=== PATIENT | male | born 1980 | race Asian ===

== ENCOUNTER 2022-02-05 16:58 | Outpatient (REF) | payer OTHER, SELFPAY ==
--- NOTE | ~2022-02-05 | XR_ITS ---
EXAMINATION: XR CHEST CLINICAL INFORMATION: Cough. COMPARISON: None TECHNIQUE: 2 views of the chest were obtained. FINDINGS: The lungs are well expanded. No focal consolidation. No pleural effusion. Cardiac silhouette is within normal limits. XR/XR chest 2V IMPRESSION: No acute abnormality.
== END 2022-02-05 16:59 | disposition home or self-care (01) ==
LOC: HO.XRAY 16:58
PROVIDERS: Visit Provider Internal Medicine
DX: R05.9 Cough, unspecified (principal)
CPT/HCPCS: 71046; 99212

== ENCOUNTER 2022-02-06 12:05 | Outpatient (REF) | payer OTHER, SELFPAY ==
--- NOTE | 2022-02-06 13:41 | PFT_ITS ---
INDICATION: Cough. SPIROMETRY: FEV1 to FVC 98% with an FEV1 of 3.05 L which is 79% predicted and FVC of 3.47 L which is 92% predicted. No significant response to bronchodilators noted. Maximum voluntary ventilation 69% predicted. LUNG VOLUMES: Total lung capacity 81% predicted with an expiratory reserve volume of 54% predicted. DIFFUSION CAPACITY: DLCO 87% predicted. COMPARISONS: None. INTERPRETATION: No obstructive nor restrictive ventilatory defects identified. No significant response to bronchodilators noted. There is a mild decrease in maximum voluntary ventilation secondary to deconditioning. Lung volumes also low normal. Therefore, occult interstitial lung conditions or neuromuscular conditions cannot be ruled out. Diffusion capacity is within normal limits. If asthma is in the differential, methacholine challenge may be helpful in assessing for hyper-reactive airways disease. Clinical correlation warranted. MD KENTON Patel/MODL / [id number]
== END 2022-02-06 12:06 | disposition home or self-care (01) ==
LOC: HO.RESP 12:05
PROVIDERS: Visit Provider Internal Medicine
DX: J68.3 Other acute and subacute respiratory conditions due to chemicals, gases, fumes and vapors (principal); R05.9 Cough, unspecified
CPT/HCPCS: 94060; 94727; 94729

== ENCOUNTER 2023-05-07 15:21 | Outpatient (AMB) | payer OTHER, SELFPAY ==
[2023-05-07 15:28] VITALS: BP 122/78; PULSE 74; O2SAT 98; BMI 27.7
--- NOTE | 2023-05-07 15:28 | A.OFFVIS_ITS ---
Intake Vital Signs 05/07/23 15:28 Height 5 ft 7 in Weight 177 lb BMI 27.7 BP 122/78 Blood Pressure Location Lt brachial Position Sitting Pulse 74 Pulse Source Pulse Oximeter Pulse Oximetry (%) 98 Oxygen Delivery Method Room Air Intake Visit Reasons: cough Intake Note: pt is here for follow up and he has a cough, and yesterday slight fever 100.5, 101 doing home remedies, it was the cough that was his main reason for the call. [employer] Apprentice Required: No Allergies No Known Allergies Allergy (Verified 05/07/23 15:34) Medication List - Last Reconciled 05/07/23 by Liza Manzanares MD albuterol sulfate 90 mcg/actuation (ProAir HFA) inhalation Flovent HFA 110 mcg/actuation (fluticasone propionate) 2 puffs inhalation BID 30 days NS Do you need a note to return to daycare/school/sports/work: No HPI cough HPI Details 42 YEARS OLD GENTLEMAN IS COMPLAINING OF ONGOING COUGH FOR ABOUT 4-6 WEEKS. AT THE ONSET OF HIS SYMPTOMS HE DID HAVE ACUTE VIRAL ILLNESS, FROM WHICH HE RECOVERED WITHIN A FEW DAYS. AT THAT POINT HE DID NOT CHECK FOR ANY. COVID INFECTION SUBSEQUENTLY HE HAS CONTINUE TO HAVE COUGH, WHICH HAS NOT SUBSIDED. THE COUGH COMES ON WITH ANY PHYSICAL EXERTION , SPEAKING LOAD OR LAUGHING. GETS WORSE SOMETIME AT NIGHT IS TO THE POINT THAT HE CANNOT SLEEP WELL. IN THE LAST FEW DAYS HE IS HAVING INTERMITTENT FEVER WITH SWEATING. HE ALSO FEELS SOMEWHAT WEAKER. THAN USUAL HE TESTED HIMSELF FOR COVID INFECTION AT HOME AND WAS NEGATIVE. LAST YEAR HE WENT THROUGH THE SAME CYCLE UP PERSISTENT COUGH, HIS BREATHING TEST WAS NORMAL. CLINICALLY WAS THOUGHT TO HAVE REACTIVE AIRWAYS, AND HE WAS TREATED WITH FLOVENT FOR A FEW WEEKS AND THEN ADVISED TO USE ALBUTEROL HFA P.R.N.. [facility] Medical History Bronchitis Reactive airways dysfunction syndrome Cough Social History Patient Tobacco Use Status: Never used Tobacco Review of Systems Const All systems reviewed & are unremarkable except as noted in HPI and below Denies snoring Eyes Reports no additional complaints ENT Reports nasal congestion (Only once in a while) Card Reports no additional complaints and Denies dyspnea Resp Reports cough, Denies dyspnea, Denies snoring and Denies wheezing GI Reports no additional complaints Reports no additional complaints Musc Reports no additional complaints Skin/Breast Reports system reviewed and no additional complaints, except as documented Neuro Reports no additional complaints Psych Reports no additional complaints Aller/Immun Denies wheezing Physical Exam Vital Signs: Last Vital Signs Pulse 74 05/07/23 15:28 BP 122/78 05/07/23 15:28 Pulse Ox 98 05/07/23 15:28 Oxygen Delivery Method Room Air 05/07/23 15:28 BMI result Body Mass Index 27.7 Const General: healthy appearing, comfortable, no acute distress, alert and awake Orientation/consciousness: patient oriented x3 HEENT Head: Yes normal to inspection General nose exam: No nasal polyps present and No nasal discharge present Face and sinus: Yes sinuses nontender Mouth: oropharynx normal Throat: Yes posterior oropharynx normal Eyes General: appearance normal, both eyes and all related structures Neck Neck: Yes normal visual inspection, Yes no lymphadenopathy, Yes trachea midline and Yes no JVD Thyroid: Thyroid normal Chest Chest palpation & inspection: normal inspection of the chest, normal palpation of entire chest wall and no tenderness Resp Other: Percussion note is resonant, breath sounds equal on both sides. Lungs are clear and there were no audible wheezes or crepitations. However he does get cough on taking deep breath. Cardio Palpation: normal PMI Rate: regular rate Rhythm: regular rhythm Heart sounds: no gallops and no murmurs Peripheral pulses: Peripheral pulses 2+ throughout GI Palpation (GI): Soft to palpation, nontender, No hepatosplenomegaly present and no masses Auscultation: normal bowel sounds Back/Spine/Pelvis Thoracic/Lumbar Spine: thoracic and lumbar spine normal to inspection Skin General skin exam: no rashes or lesions noted Neuro General: patient oriented x3 and no focal motor deficits Cranial nerves: Yes CN's II-XII intact bilaterally Extrem General: Yes normal to inspection, Yes no clubbing, cyanosis or edema and Yes no calf tenderness Psych Speech and movement: Normal speech and movement present Assessment & Plan Assessment & Plan (1) Cough: Comment: Most likely secondary to reactive airways. Rule out any Parenchymal lung disease. Code(s): R05.9 - Cough, unspecified Plan: Chest x-ray ordered. tx: Advise that he can use Ventolin 2 puffs Q 4-6 hours p.r.n. for persistent cough. (2) Reactive airways dysfunction syndrome: Comment: He gets reactive airways syndrome after any why rule infection. This time his ongoing cough for a few weeks is probably due to post infection reactive airways Code(s): J68.3 - Other acute and subacute respiratory conditions due to chemicals, gases, fumes and vapors Plan: Use albuterol 2 puffs Q 4-6 hours p.r.n.. May try [id number] cough medicine ,like Delsyn 2 tsp Q 6 hours p.r.n. (3) Bronchitis: Comment: His symptoms are due to ongoing bronchitis and may be secondary to low-grade respiratory infection. Code(s): J40 - Bronchitis, not specified as acute or chronic Plan: Azithromycin 250 mg once a day for 10 days . Orders: Orders XR chest 2V Today J40 - Bronchitis, not specified as acute or chronic, J68.3 - Other acute and subacute respiratory conditions due to chemicals, gases, fumes and vapors, R05.9 - Cough, unspecified Medications: New azithromycin 250 mg PO QDAY 10 days 10 tabs 0RF Coding Level of Care Code Est Pt Level 3 (17823) Diagnoses Cough R05.9 Reactive airways dysfunction syndrome J68.3 Bronchitis J40
== END 2023-05-07 15:59 | disposition home or self-care (01) ==
PROVIDERS: Visit Provider Internal Medicine
DX: R05.9 Cough, unspecified (principal); J68.3 Other acute and subacute respiratory conditions due to chemicals, gases, fumes and vapors; J40 Bronchitis, not specified as acute or chronic
CPT/HCPCS: 99213

== ENCOUNTER 2023-05-07 15:21 | Outpatient (REF) | payer OTHER, SELFPAY | END 2023-05-07 15:22 | disposition home or self-care (01) | LOC: HO.XRAY 15:21 | PROVIDERS: Visit Provider Internal Medicine | DX: R05.9 Cough, unspecified (principal); J68.3 Other acute and subacute respiratory conditions due to chemicals, gases, fumes and vapors; J40 Bronchitis, not specified as acute or chronic | CPT/HCPCS: 71046; 99212 ==